=== PATIENT | female | born 2000 | race Caucasian/White ===

== ENCOUNTER 2019-07-15 08:02 | Emergency (ER) | payer BC, MEDICAID ==
[2019-07-15 08:48] VITALS: RESP 16; TEMP 97; O2SAT 98
[2019-07-15 09:51] VITALS: BP 123/72; PULSE 72
== END 2019-07-15 09:31 | disposition home or self-care (01) ==
LOC: ED 08:02
DX: W55.01XA Bitten by cat, initial encounter (principal); S61.451A Open bite of right hand, initial encounter; Z3A.13 13 weeks gestation of pregnancy; Z33.1 Pregnant state, incidental
CPT/HCPCS: 99282